=== PATIENT | female | born 1990 | race Caucasian/White ===

== ENCOUNTER 2017-04-05 15:30 | Emergency (ER) | payer OTHER ==
[2017-04-05 16:20] VITALS: BP 132/87
--- NOTE | 2017-04-05 17:54 | UC ---
Eye Complaint HPI - HPI Summary HPI Summary: RIGHT EYE REDNESS AND DISCHARGE SINCE THIS MORNING. NO COUGH, NO SINUS CONGESTION. NO FEVER. - History of Current Complaint Chief Complaint: UCEye Stated Complaint: RT EYE IRRITATION Time Seen by Provider: 04/05/17 16:47 Hx Obtained From: Patient Hx Last Menstrual Period: 2-3 weeks Onset/Duration: Gradual Onset, Lasting Hours, Still Present Timing: Hours Severity Initially: Mild Severity Currently: Moderate Pain Intensity: 0 Pain Scale Used: 0-10 Numeric Location of Injury: Conjunctiva Alleviating Factor(s): Nothing Associated Signs And Symptoms: Positive: Drainage (Purulent). Negative: Photophobia, Vision Impairment Right, Vision Impairment Left, Fever, Swelling - Risk Factors Penetrating Injury Risk Factor: Negative Acute Glaucoma Risk Factors: Negative Optic Artery Occlusion Risk Factors: Negative - Allergies/Home Medications Allergies/Adverse Reactions: Allergies Allergy/AdvReac Type Severity Reaction Status Date / Time seasonal Allergy Eyes Uncoded 04/05/17 16:20 Itchy/Swollen/Red/Watery PMH/Surg Hx/FS Hx/Imm Hx Previously Healthy: Yes - Surgical History Surgical History: Yes Surgery Procedure, Year, and Place: T&A, inguinal hernia surgery and benign tumor discovered 2005 - Family History Known Family History: Positive: Respiratory Disease - many members with asthma, Other - glaucoma - Social History Occupation: Employed Full-time Lives: With Family Alcohol Use: Rare Substance Use Type: None Smoking Status (MU): Never Smoked Tobacco - Immunization History Most Recent Influenza Vaccination: none Review of Systems Constitutional: Negative Skin: Negative Eyes: Drainage, Eye Redness ENT: Negative Respiratory: Negative Cardiovascular: Negative Gastrointestinal: Negative Genitourinary: Negative Motor: Negative Neurovascular: Negative Musculoskeletal: Negative Neurological: Negative Psychological: Negative All Other Systems Reviewed And Are Negative: Yes Physical Exam Triage Information Reviewed: Yes Appearance: Well-Appearing, No Pain Distress, Well-Nourished Vital Signs: Initial Vital Signs Temp 98.4 F 04/05/17 16:07 Pulse 84 04/05/17 16:07 Resp 22 04/05/17 16:07 BP 132/87 04/05/17 16:07 Eyes: Positive: Conjunctiva Inflamed - RIGHT, Discharge ENT Exam: Normal ENT: Positive: Normal ENT inspection, Hearing grossly normal, TMs normal Dental Exam: Normal Neck exam: Normal Neck: Positive: Supple, Nontender, No Lymphadenopathy Respiratory Exam: Normal Respiratory: Positive: Chest non-tender, Lungs clear, Normal breath sounds, No respiratory distress, No accessory muscle use Cardiovascular Exam: Normal Cardiovascular: Positive: RRR, No Murmur, Pulses Normal Abdominal Exam: Normal Musculoskeletal Exam: Normal Musculoskeletal: Positive: Strength Intact, ROM Intact Neurological Exam: Normal Psychological Exam: Normal Skin Exam: Normal Eye Complaint Course/Dx - Differential Dx/Diagnosis Differential Diagnosis/HQI/PQRI: Conjunctivitis, Corneal Abrasion, Uveitis Provider Diagnoses: RIGHT CONJUNCTIVITIS Discharge - Discharge Plan Condition: Stable Disposition: HOME Prescriptions: Erythromycin OPHTH.OINT* [Ilotycin OPHTH.OINT*] 1 applic RIGHT EYE BID #1 ophth.oint Patient Education Materials: Conjunctivitis (ED) Forms: *Work Release Referrals: [facility] [Outside] No Primary Care Phys,NOPCP [Primary Care Provider] -
== END 2017-04-05 17:23 | disposition home or self-care (01) ==
LOC: UCCORT 15:30
DX: H10.9 Unspecified conjunctivitis (principal)
CPT/HCPCS: 99212; G0463

== ENCOUNTER 2017-09-24 10:49 | Emergency (ER) | payer OTHER ==
[2017-09-24 12:27] VITALS: BP 138/82
--- NOTE | 2017-09-24 12:58 | UC ---
Ear Complaint HPI - HPI Summary HPI Summary: Pt c/o right ear pain and muffled hearing X 2 days. - History of Current Complaint Chief Complaint: UCEar Stated Complaint: EAR INFECTION Time Seen by Provider: 09/24/17 12:50 Hx Obtained From: Patient Hx Last Menstrual Period: 09/11/17 ?: No Onset/Duration: Sudden Onset, Lasting Days Severity Initially: Mild Severity Currently: Mild - Allergies/Home Medications Allergies/Adverse Reactions: Allergies Allergy/AdvReac Type Severity Reaction Status Date / Time seasonal Allergy Eyes Uncoded 09/24/17 12:27 Itchy/Swollen/Red/Watery PMH/Surg Hx/FS Hx/Imm Hx Previously Healthy: Yes - Surgical History Surgical History: Yes Surgery Procedure, Year, and Place: T&A, inguinal hernia surgery and benign tumor discovered 2005 - Family History Known Family History: Positive: Respiratory Disease - many members with asthma, Other - glaucoma - Social History Occupation: Employed Full-time Lives: With Family Alcohol Use: Rare Substance Use Type: None Smoking Status (MU): Never Smoked Tobacco Have You Smoked in the Last Year: No - Immunization History Most Recent Influenza Vaccination: none Review of Systems Constitutional: Negative Skin: Negative Eyes: Negative ENT: Ear Ache Respiratory: Negative Cardiovascular: Negative Gastrointestinal: Negative Genitourinary: Negative Motor: Negative Neurovascular: Negative Musculoskeletal: Negative Neurological: Negative Psychological: Negative Is Patient Immunocompromised?: No All Other Systems Reviewed And Are Negative: Yes Physical Exam Triage Information Reviewed: Yes Appearance: Well-Appearing Vital Signs: Initial Vital Signs Temp 98.3 F 09/24/17 12:21 Pulse 83 09/24/17 12:21 Resp 14 09/24/17 12:21 BP 138/82 09/24/17 12:21 Pulse Ox 100 09/24/17 12:21 Vital Signs Reviewed: Yes Eye Exam: Normal ENT Exam: Other ENT: Positive: TM bulging - right TM Dental Exam: Normal Neck exam: Normal Respiratory Exam: Normal Cardiovascular Exam: Normal Musculoskeletal Exam: Normal Neurological Exam: Normal Psychological Exam: Normal Skin Exam: Normal Ear Complaint Course/Dx - Differential Dx/Diagnosis Differential Diagnosis/HQI/PQRI: Otitis Media, URI Provider Diagnoses: right serous otitis. right ear ache Discharge - Discharge Plan Condition: Stable Disposition: HOME Prescriptions: Ciproflox/Dexameth OTIC.SUSP* [Ciprodex OTIC.SUSP*] 2 drop RIGHT EAR Q8H #1 btl Patient Education Materials: Earache (ED), Serous Otitis Media (ED) Referrals: No Primary Care Phys,NOPCP [Primary Care Provider] - If Needed
== END 2017-09-24 13:05 | disposition home or self-care (01) ==
LOC: UCCORT 10:49
DX: H65.91 Unspecified nonsuppurative otitis media, right ear (principal); H92.01 Otalgia, right ear
CPT/HCPCS: 99212; G0463

== ENCOUNTER 2017-10-30 15:10 | Emergency (ER) | payer OTHER ==
[2017-10-30 16:36] VITALS: BP 138/87
--- NOTE | 2017-10-30 17:23 | UC ---
Throat Pain/Nasal Jorge L HPI - HPI Summary HPI Summary: 27 female presents to with complaints of sinus congestion, pain, nasal congestion, headache and feeling "lousy" that began Saturday of last week and worsened today. Patient states she has been using saline rinses without much relief. Has sinus infections often. Denies fever/chills. Admits to coughing and post nasal drip. States headache is a lot of pressure. No other complaints. No PMHx. Discharge is green/yellow. - History of Current Complaint Chief Complaint: UCGeneralIllness Stated Complaint: SINUS/COUGH Time Seen by Provider: 10/30/17 16:26 Hx Obtained From: Patient Hx Last Menstrual Period: has IUD over 1 year Onset/Duration: Sudden Onset, Lasting Days, Still Present, Worse Since Severity: Moderate - 0 Pain Intensity: 2 Pain Scale Used: 0-10 Numeric Cough: Productive Associated Signs & Symptoms: Positive: Sinus Discomfort, Nasal Discharge - Allergies/Home Medications Allergies/Adverse Reactions: Allergies Allergy/AdvReac Type Severity Reaction Status Date / Time seasonal Allergy Eyes Uncoded 10/30/17 16:36 Itchy/Swollen/Red/Watery PMH/Surg Hx/FS Hx/Imm Hx - Additional Past Medical History Additional PMH: Denies DM HTN and asthma - Surgical History Surgical History: Yes Surgery Procedure, Year, and Place: T&A, inguinal hernia surgery and benign tumor discovered 2005 - Family History Known Family History: Positive: Respiratory Disease - many members with asthma, Other - glaucoma - Social History Alcohol Use: Rare Substance Use Type: None Smoking Status (MU): Never Smoked Tobacco Have You Smoked in the Last Year: No - Immunization History Most Recent Influenza Vaccination: [id number] Vaccination Up to Date: Yes Review of Systems Constitutional: Fatigue Eyes: Negative ENT: Sore Throat, Nasal Discharge, Sinus Congestion, Sinus Pain/Tenderness Respiratory: Cough Cardiovascular: Negative Gastrointestinal: Negative Musculoskeletal: Negative Neurological: Headache All Other Systems Reviewed And Are Negative: Yes Physical Exam Triage Information Reviewed: Yes Appearance: No Pain Distress, Well-Nourished, Ill-Appearing - sounds congested Vital Signs: Initial Vital Signs Temp 98.1 F 10/30/17 16:32 Pulse 87 10/30/17 16:32 Resp 16 10/30/17 16:32 BP 138/87 10/30/17 16:32 Pulse Ox 100 10/30/17 16:32 Vital Signs Reviewed: Yes Eyes: Positive: Conjunctiva Clear ENT: Positive: Pharyngeal erythema, Nasal congestion, TMs normal, Sinus tenderness, Uvula midline - airway patent. Negative: TM bulging, TM dull, TM red, Tonsillar swelling, Tonsillar exudate Dental: Positive: Percussion Tenderness @ - maxillary and frontal, Cervical Lymphadenopathy Neck: Positive: Supple, Nontender, No Lymphadenopathy Respiratory: Positive: Chest non-tender, Lungs clear, Normal breath sounds, No respiratory distress, No accessory muscle use. Negative: Wheezing Cardiovascular: Positive: RRR, No Murmur, Pulses Normal, Brisk Capillary Refill Abdomen Description: Positive: Nontender Bowel Sounds: Positive: Present Musculoskeletal: Positive: Strength Intact, ROM Intact Neurological: Positive: Alert Throat Pain/Nasal Course/Dx - Course Course Of Treatment: appears to be suffering from a sinusitis. will treat with augmentin. increase fluid intake and get plenty of rest. ibuprofen/tylenol. saline rinses and flonase. no other concerns at this time. aware of worsening signs and symptoms to watch out for. - Differential Dx/Diagnosis Differential Diagnosis/HQI/PQRI: Sinusitis, URI Provider Diagnoses: sinusitis Discharge - Discharge Plan Condition: Stable Disposition: HOME Prescriptions: Amoxicillin/Clavulanate TAB* [Augmentin TAB 875*] 875 mg PO BID #20 tab Fluticasone NASAL SPRAY 50MCG* [Flonase NASAL SPRAY 50MCG*] 2 spray BOTH NARES DAILY #1 btl Patient Education Materials: Sinusitis (ED) Referrals: [facility] [place], [place] [facility] [Outside] Additional Instructions: Take prescribed medication as directed until entire dose is finished. Increase fluid intake and get plenty of rest. Continue hot compresses, saline rinses, ibuprofen/tylenol and hot showers. Any new or worsening symptoms please seek medical attention promptly. Follow up with PCP.
== END 2017-10-30 17:41 | disposition home or self-care (01) ==
LOC: UCCORT 15:10
DX: J32.9 Chronic sinusitis, unspecified (principal)
CPT/HCPCS: 99212; G0463

== ENCOUNTER 2017-12-21 09:13 | Emergency (ER) | payer OTHER ==
[2017-12-21 11:00] VITALS: BP 126/81
--- NOTE | 2017-12-21 11:14 | UC ---
Throat Pain/Nasal Jorge L HPI - HPI Summary HPI Summary: c/o npc, nasal and chest congestion, earache bilaterally . denies fever or chills - symptoms started 3 days ago tried tylenol cough and cold with some relief. - History of Current Complaint Chief Complaint: UCRespiratory Stated Complaint: SINUSES,PRESSURE Time Seen by Provider: 12/21/17 11:04 Hx Obtained From: Patient Hx Last Menstrual Period: iud Onset/Duration: Lasting Days Severity: Moderate Pain Intensity: 6 Associated Signs & Symptoms: Positive: Sinus Discomfort, Nasal Discharge - Epiglottits Risk Factors Epiglottis Risk Factors: Negative - Allergies/Home Medications Allergies/Adverse Reactions: Allergies Allergy/AdvReac Type Severity Reaction Status Date / Time seasonal Allergy Eyes Uncoded 12/21/17 11:00 Itchy/Swollen/Red/Watery PMH/Surg Hx/FS Hx/Imm Hx Previously Healthy: Yes - Surgical History Surgical History: Yes Surgery Procedure, Year, and Place: T&A, inguinal hernia surgery and benign tumor discovered 2005 - Family History Known Family History: Positive: Respiratory Disease - many members with asthma, Other - glaucoma - Social History Alcohol Use: Weekly Substance Use Type: None Smoking Status (MU): Never Smoked Tobacco Have You Smoked in the Last Year: No - Immunization History Most Recent Influenza Vaccination: [id number] Vaccination Up to Date: Yes Review of Systems Constitutional: Negative Skin: Negative Eyes: Negative ENT: Sore Throat, Ear Ache, Nasal Discharge, Sinus Congestion, Sinus Pain/ Tenderness Respiratory: Cough - npc Cardiovascular: Negative Gastrointestinal: Negative Genitourinary: Negative Motor: Negative Neurovascular: Negative Musculoskeletal: Negative Neurological: Negative Psychological: Negative Is Patient Immunocompromised?: No All Other Systems Reviewed And Are Negative: Yes Physical Exam Triage Information Reviewed: Yes Appearance: Ill-Appearing Vital Signs: Initial Vital Signs Temp 98.3 F 12/21/17 10:56 Pulse 101 12/21/17 10:56 Resp 18 12/21/17 10:56 BP 126/81 12/21/17 10:56 Pulse Ox 100 12/21/17 10:56 Vital Signs Reviewed: Yes Eye Exam: Normal ENT: Positive: Pharyngeal erythema, Nasal congestion, TM bulging - bilaterally, Sinus tenderness Neck exam: Normal Respiratory Exam: Normal Cardiovascular Exam: Normal Abdominal Exam: Normal Musculoskeletal Exam: Normal Neurological Exam: Normal Psychological Exam: Normal Skin Exam: Normal Throat Pain/Nasal Course/Dx - Course Course Of Treatment: take ibuprofen as directed 800mg po q8 hours prn pain. increase fluid intake daily to prevent dehydration. take abx as directed - discussed use and common side effects of med. use nasal spray as directed. f/ u 1 week prn if symptoms not resolving - Differential Dx/Diagnosis Differential Diagnosis/HQI/PQRI: Pharyngitis, Sinusitis Provider Diagnoses: sinusitis Discharge - Discharge Plan Condition: Good Disposition: HOME Prescriptions: Azithromycin TAB* [Zithromax TAB (Z-IGLESIA) 250 mg #6 tabs] 2 tab PO .TODAY, THEN 1 DAILY 5 Days #1 iglesia Fluticasone NASAL SPRAY 50MCG* [Flonase NASAL SPRAY 50MCG*] 2 spray BOTH NARES DAILY 5 Days #1 btl Patient Education Materials: Sinusitis (ED) [facility] - 1 Week
== END 2017-12-21 11:28 | disposition home or self-care (01) ==
LOC: UCCORT 09:13
DX: J32.9 Chronic sinusitis, unspecified (principal)
CPT/HCPCS: 99212; G0463

== ENCOUNTER 2018-05-23 18:31 | Emergency (ER) | payer BC, OTHER ==
[2018-05-23 18:44] VITALS: BP 121/75
[2018-05-23] MEDS ORDERED: Albuterol 2.5 MG/3 ML NEB.SOL* (0.083%) INH ONE (18:52)
--- NOTE | 2018-05-23 19:39 | UC ---
Respiratory Complaint HPI - History of Current Complaint Chief Complaint: UCGeneralIllness Stated Complaint: CHEST DISCOMFORT, DIFF. BREATHING, COUGH, KEN. Time Seen by Provider: 05/23/18 18:51 Hx Last Menstrual Period: 05/22/18, has copper IUD Onset/Duration: Lasting Days Severity Initially: Moderate Severity Currently: Moderate Pain Intensity: 3 Character: Cough: Nonproductive Alleviating Factors: Upright Position Associated Signs And Symptoms: Positive: Dyspnea, Wheezing - Risk Factors Pulmonary Embolism Risk Factors: Negative Cardiac Risk Factors: Negative Pseudomonas Risk Factors: Negative Tuberculosis Risk Factors: Negative - Allergies/Home Medications Allergies/Adverse Reactions: Allergies Allergy/AdvReac Type Severity Reaction Status Date / Time seasonal Allergy Eyes Uncoded 05/23/18 18:44 Itchy/Swollen/Red/Watery PMH/Surg Hx/FS Hx/Imm Hx Previously Healthy: Yes Respiratory History: Asthma - intermittent wheezing in the past - Surgical History Surgical History: Yes Surgery Procedure, Year, and Place: T&A, inguinal hernia surgery and benign tumor discovered 2005 - Family History Known Family History: Positive: Respiratory Disease - many members with asthma, Other - glaucoma - Social History Alcohol Use: Occasionally Substance Use Type: None Smoking Status (MU): Never Smoked Tobacco Have You Smoked in the Last Year: No - Immunization History Most Recent Influenza Vaccination: [id number] Vaccination Up to Date: Yes Review of Systems Constitutional: Negative Skin: Negative Eyes: Negative ENT: Negative Respiratory: Shortness Of Breath, Cough Cardiovascular: Negative Gastrointestinal: Negative Genitourinary: Negative Motor: Negative Neurovascular: Negative Musculoskeletal: Negative Neurological: Negative Psychological: Negative Is Patient Immunocompromised?: Yes All Other Systems Reviewed And Are Negative: Yes Physical Exam Triage Information Reviewed: Yes Appearance: Well-Appearing Vital Signs: Initial Vital Signs Temp 38.1 C 05/23/18 18:37 Pulse 105 05/23/18 18:37 Resp 17 05/23/18 18:37 BP 121/75 05/23/18 18:37 Pulse Ox 100 05/23/18 18:37 Vital Signs Reviewed: Yes Eye Exam: Normal ENT Exam: Normal ENT: Positive: Normal ENT inspection Dental Exam: Normal Neck exam: Normal Neck: Positive: Supple Respiratory Exam: Normal Respiratory: Positive: Chest non-tender, Lungs clear Cardiovascular Exam: Normal Abdominal Exam: Normal Abdomen Description: Positive: Nontender Bowel Sounds: Positive: Present Musculoskeletal Exam: Normal Neurological Exam: Normal Psychological Exam: Normal Skin Exam: Normal UC Diagnostic Evaluation - Laboratory O2 Sat by Pulse Oximetry: 100 Respiratory Course/Dx - Course Course Of Treatment: bronchitis, responsive to albuterol - Differential Dx/Diagnosis Provider Diagnoses: asthma, bronchitis Discharge - Sign-Out/Discharge Documenting (check all that apply): Patient Departure - Discharge Plan Condition: Good Disposition: HOME Patient Education Materials: Bronchospasm (ED) Referrals: No Primary Care Phys,NOPCP [Primary Care Provider] - - Billing Disposition and Condition Condition: GOOD Disposition: Home
--- NOTE | 2018-05-23 19:39 | RAD ---
INDICATION: Fever, cough and dyspnea. COMPARISON: There are no prior studies available for comparison. TECHNIQUE: Dual-energy PA and lateral views of the chest were obtained. FINDINGS: The heart is within normal limits in size. Mediastinal and hilar contours appear within normal limits. The lungs are clear. No pleural effusion is present. IMPRESSION: NO EVIDENCE FOR ACTIVE CARDIOPULMONARY DISEASE.
[2018-05-23] MEDS ORDERED: Azithromycin TAB* 250 MG PO ONE (20:18)
== END 2018-05-23 20:23 | disposition home or self-care (01) ==
LOC: UCCORT 18:31
DX: J45.909 Unspecified asthma, uncomplicated (principal); Z91.048 Other nonmedicinal substance allergy status; Z82.5 Family history of asthma and other chronic lower respiratory diseases
CPT/HCPCS: 71046; 99212; A9270-GY; G0463

== ENCOUNTER 2018-08-19 08:43 | Emergency (ER) | payer BC, OTHER ==
[2018-08-19 09:08] VITALS: BP 140/96
--- NOTE | 2018-08-19 09:42 | UC ---
Throat Pain/Nasal Jorge L HPI - HPI Summary HPI Summary: oral sores x 1 day noted multiple sores in her mouth , mild sore throat no cold sx, no fever, no chills - History of Current Complaint Chief Complaint: UCGeneralIllness Stated Complaint: ORAL/THROAT COMPLAINT Time Seen by Provider: 08/19/18 09:33 Hx Obtained From: Patient Hx Last Menstrual Period: 08/14/18 Onset/Duration: Gradual Onset, Lasting Days - 1, Still Present Severity: Moderate Pain Intensity: 2 Cough: None Associated Signs & Symptoms: Negative: Dysphagia, FB Sensation, Drooling, Wheezing, Hoarseness, Sinus Discomfort, Nasal Discharge, Fever, Vomiting, Rash - Allergies/Home Medications Allergies/Adverse Reactions: Allergies Allergy/AdvReac Type Severity Reaction Status Date / Time seasonal Allergy Eyes Uncoded 08/19/18 09:00 Itchy/Swollen/Red/Watery PMH/Surg Hx/FS Hx/Imm Hx Previously Healthy: Yes - Surgical History Surgical History: Yes Surgery Procedure, Year, and Place: T&A, inguinal hernia surgery and benign tumor discovered 2005 - Family History Known Family History: Positive: Respiratory Disease - many members with asthma, Other - glaucoma - Social History Alcohol Use: Occasionally Substance Use Type: None Smoking Status (MU): Never Smoked Tobacco Have You Smoked in the Last Year: No - Immunization History Most Recent Influenza Vaccination: [id number] Vaccination Up to Date: Yes Review of Systems Constitutional: Negative Skin: Negative Eyes: Negative ENT: Sore Throat Respiratory: Negative Cardiovascular: Negative Is Patient Immunocompromised?: No All Other Systems Reviewed And Are Negative: Yes Physical Exam Triage Information Reviewed: Yes Appearance: Well-Appearing, No Pain Distress, Well-Nourished Vital Signs: Initial Vital Signs Temp 98.3 F 08/19/18 09:01 Pulse 85 08/19/18 09:01 Resp 18 08/19/18 09:01 BP 140/96 08/19/18 09:01 Pulse Ox 100 08/19/18 09:01 Vital Signs Reviewed: Yes Eye Exam: Normal Eyes: Positive: Conjunctiva Clear ENT: Positive: Normal ENT inspection, Hearing grossly normal, Pharynx normal, Other - multiple mouth soars Neck: Positive: Supple, Nontender, No Lymphadenopathy Respiratory Exam: Normal Respiratory: Positive: Chest non-tender, Lungs clear, Normal breath sounds Cardiovascular: Positive: RRR, No Murmur, Pulses Normal Neurological Exam: Normal Throat Pain/Nasal Course/Dx - Course Assessment/Plan: monitor your BP daily. follow up with your pcp in one week - Differential Dx/Diagnosis Provider Diagnoses: canker sores. elevated blood pressure Discharge - Sign-Out/Discharge Documenting (check all that apply): Patient Departure All imaging exams completed and their final reports reviewed: No Studies - Discharge Plan Condition: Stable Disposition: HOME Patient Education Materials: Canker Sores (ED) Referrals: No Primary Care Phys,NOPCP [Primary Care Provider] - If Needed - Billing Disposition and Condition Condition: STABLE Disposition: Home
== END 2018-08-19 09:43 | disposition home or self-care (01) ==
LOC: UCCORT 08:43
DX: K12.0 Recurrent oral aphthae (principal); R03.0 Elevated blood-pressure reading, without diagnosis of hypertension
CPT/HCPCS: 99211; G0463

== ENCOUNTER 2018-12-24 16:36 | Emergency (ER) | payer BC ==
[2018-12-24 17:55] VITALS: BP 144/84
--- NOTE | 2018-12-24 18:26 | UC ---
Throat Pain/Nasal Jorge L HPI - HPI Summary HPI Summary: 28-year-old woman comes in with a chief complaint of runny nose sinus pressure green rhinorrhea. Patient reports the symptoms have been a lot worse in the last day. Has had some runny nose for some time. Also complaint of some ear pressure bilaterally. Some myalgias in her upper back but no generalized myalgias. No recent fevers. Her parents she's got diagnosed with influenza. [id number] medicine helps with the symptoms. - History of Current Complaint Chief Complaint: UCGeneralIllness Stated Complaint: SINUS Time Seen by Provider: 12/24/18 17:45 Hx Last Menstrual Period: 12/24/18 Pain Intensity: 4 - Allergies/Home Medications Allergies/Adverse Reactions: Allergies Allergy/AdvReac Type Severity Reaction Status Date / Time seasonal Allergy Eyes Uncoded 12/24/18 17:53 Itchy/Swollen/Red/Watery PMH/Surg Hx/FS Hx/Imm Hx Previously Healthy: Yes - Surgical History Surgical History: Yes Surgery Procedure, Year, and Place: T&A, inguinal hernia surgery and benign tumor discovered 2005 - Family History Known Family History: Positive: Respiratory Disease - many members with asthma, Other - glaucoma - Social History Alcohol Use: Occasionally Substance Use Type: None Smoking Status (MU): Never Smoked Tobacco Have You Smoked in the Last Year: No - Immunization History Most Recent Influenza Vaccination: [id number] Vaccination Up to Date: Yes Review of Systems All Other Systems Reviewed And Are Negative: Yes Constitutional: Positive: Negative Skin: Positive: Negative Eyes: Positive: Negative ENT: Positive: Sore Throat, Ear Ache, Nasal Discharge, Sinus Congestion, Sinus Pain/Tenderness Respiratory: Positive: Negative Cardiovascular: Positive: Negative Gastrointestinal: Positive: Negative Motor: Positive: Negative Neurovascular: Positive: Negative Musculoskeletal: Positive: Myalgia Neurological: Positive: Negative Psychological: Positive: Negative Is Patient Immunocompromised?: No Physical Exam Triage Information Reviewed: Yes Appearance: No Pain Distress, Well-Nourished, Ill-Appearing - MILD Vital Signs: Initial Vital Signs Temp 99 F 12/24/18 17:52 Pulse 102 12/24/18 17:52 Resp 16 12/24/18 17:52 BP 144/84 12/24/18 17:52 Pulse Ox 100 12/24/18 17:52 Vital Signs Reviewed: Yes Eye Exam: Normal Eyes: Positive: Conjunctiva Clear ENT: Positive: Pharyngeal erythema, Nasal congestion, Nasal drainage, TMs normal Neck exam: Normal Neck: Positive: Supple Respiratory: Positive: Lungs clear, Normal breath sounds, No respiratory distress Cardiovascular: Positive: RRR Musculoskeletal Exam: Normal Musculoskeletal: Positive: Strength Intact, ROM Intact Neurological Exam: Normal Neurological: Positive: Alert, Muscle Tone Normal Psychological Exam: Normal Psychological: Positive: Normal Response To Family, Age Appropriate Behavior Skin Exam: Normal Throat Pain/Nasal Course/Dx - Course Course Of Treatment: DISCUSSED VIRAL VERSES BACTERIAL INFECTION AND THE ROLE OF ANTIBIOTICS. THE PATIENT WISHES TO BE ON ANTIBIOTIC AT THIS TIME. - Differential Dx/Diagnosis Provider Diagnosis: Sinusitis Discharge - Sign-Out/Discharge Documenting (check all that apply): Patient Departure All imaging exams completed and their final reports reviewed: No Studies - Discharge Plan Condition: Stable Disposition: HOME Prescriptions: Amoxicillin/Clavulanate TAB* [Augmentin TAB 875*] 875 mg PO BID #20 tab Patient Education Materials: Sinusitis (ED) Referrals: Moisés Angela MD [Primary Care Provider] - Additional Instructions: FOLLOW UP WITH YOUR DOCTOR IF NOT COMPLETELY IMPROVED. GET RECHECKED FOR ANY WORSENING OF YOUR CONDITION OR QUESTIONS OR CONCERNS. - Billing Disposition and Condition Condition: STABLE Disposition: Home
[2018-12-24 18:42] LABS: Influenza A Molecular NEGATIVE (Negative); Influenza B Molecular NEGATIVE (Negative)
== END 2018-12-24 18:51 | disposition home or self-care (01) ==
LOC: UCCORT 16:36
DX: J32.9 Chronic sinusitis, unspecified (principal); Z91.09 Other allergy status, other than to drugs and biological substances
CPT/HCPCS: 99212; G0463

== ENCOUNTER 2019-03-24 18:19 | Emergency (ER) | payer BC ==
[2019-03-24 19:40] VITALS: BP 139/85
--- NOTE | 2019-03-24 19:55 | UC ---
Eye Complaint HPI - HPI Summary HPI Summary: Pt is accompanied by 4 yo daughter with similar c/o. Pt states that she has had URI like symptoms over the past few days that have begun to improve but now has bilateral eye redness and white colored discharge from bilateral eyes X 2 days. Pt states that her eyes, "sting, are tender" and were "glued shut this morning" - History of Current Complaint Chief Complaint: UCRespiratory Stated Complaint: COUGH, EYE CONCERN Time Seen by Provider: 03/24/19 19:40 Hx Obtained From: Patient Hx Last Menstrual Period: 2 weeks ago ?: No Onset/Duration: Gradual Onset, Lasting Days, Still Present Timing: Constant Severity Initially: Mild Severity Currently: Mild Pain Intensity: 0 Character: Sharp, Dull Alleviating Factor(s): Nothing Associated Signs And Symptoms: Positive: Drainage (Purulent) - Risk Factors Penetrating Injury Risk Factor: Negative Globe Rupture Risk Factors: Negative Acute Glaucoma Risk Factors: Negative Optic Artery Occlusion Risk Factors: Negative - Allergies/Home Medications Allergies/Adverse Reactions: Allergies Allergy/AdvReac Type Severity Reaction Status Date / Time seasonal Allergy Eyes Uncoded 03/24/19 19:35 Itchy/Swollen/Red/Watery Home Medications: Home Medications D-Methorphan/PE/Acetaminophen [Daytime Cold Multi-Symp Gelcap] 2 each PO ONCE PRN 03/24/19 [History Confirmed 03/24/19] PMH/Surg Hx/FS Hx/Imm Hx Previously Healthy: Yes - Surgical History Surgical History: Yes Surgery Procedure, Year, and Place: T&A, inguinal hernia surgery and benign tumor discovered 2005 - Family History Known Family History: Positive: Respiratory Disease - many members with asthma, Other - glaucoma - Social History Occupation: Employed Full-time Lives: With Family Alcohol Use: Occasionally Substance Use Type: None Smoking Status (MU): Never Smoked Tobacco Have You Smoked in the Last Year: No - Immunization History Most Recent Influenza Vaccination: [id number] Vaccination Up to Date: Yes Review of Systems All Other Systems Reviewed And Are Negative: Yes Constitutional: Positive: Negative Skin: Positive: Negative Eyes: Positive: Drainage, Eye Redness, Other - bialteral eye tenderness ENT: Positive: Negative Respiratory: Positive: Negative Cardiovascular: Positive: Negative Gastrointestinal: Positive: Negative Genitourinary: Positive: Negative Motor: Positive: Negative Neurovascular: Positive: Negative Musculoskeletal: Positive: Negative Neurological: Positive: Negative Psychological: Positive: Negative Is Patient Immunocompromised?: No Physical Exam Triage Information Reviewed: Yes Appearance: Well-Appearing Vital Signs: Initial Vital Signs Temp 99.2 F 03/24/19 19:36 Pulse 83 03/24/19 19:36 Resp 16 03/24/19 19:36 BP 139/85 03/24/19 19:36 Pulse Ox 99 03/24/19 19:36 Vital Signs Reviewed: Yes Eyes: Positive: Conjunctiva Inflamed, Discharge - white/yellow ENT Exam: Normal Neck exam: Normal Respiratory Exam: Normal Respiratory: Positive: No respiratory distress Musculoskeletal Exam: Normal Neurological Exam: Normal Psychological Exam: Normal Skin Exam: Normal Eye Complaint Course/Dx - Differential Dx/Diagnosis Differential Diagnosis/HQI/PQRI: Conjunctivitis Provider Diagnosis: Conjunctivitis Discharge - Sign-Out/Discharge Documenting (check all that apply): Patient Departure All imaging exams completed and their final reports reviewed: No Studies - Discharge Plan Condition: Stable Disposition: HOME Prescriptions: Polymyx/Trimethoprim OPTH* [Polytrim OPHTH*] 2 drop BOTH EYES Q8H 7 Days #1 btl Patient Education Materials: Conjunctivitis (ED) Referrals: Moisés Angela MD [Primary Care Provider] - If Needed - Billing Disposition and Condition Condition: STABLE Disposition: Home
== END 2019-03-24 20:15 | disposition home or self-care (01) ==
LOC: UCCORT 18:19
DX: H10.33 Unspecified acute conjunctivitis, bilateral (principal); J30.2 Other seasonal allergic rhinitis
CPT/HCPCS: 99212; G0463

== ENCOUNTER 2019-12-19 10:18 | Emergency (ER) | payer BC ==
[2019-12-19 11:19] VITALS: BP 146/99
--- NOTE | 2019-12-19 11:34 | UC ---
FLU HPI - HPI Summary HPI Summary: Pt presents with c/o gradual onset of cough, wheezing, fever, chills, body aches X 3 days.. Pt's daughter positive for Flu A - History of Current Complaint Chief Complaint: UCGeneralIllness Stated Complaint: COUGH CHILLS BODYACHES Time Seen by Provider: 12/19/19 11:20 Hx Obtained From: Patient Hx Last Menstrual Period: 2 weeks ago ?: No Onset/Duration: Gradual Onset, Lasting Days, Still Present Severity Currently: Mild Severity Initially: Moderate Pain Intensity: 6 Associated Signs & Symptoms: Positive: Fever, Myalgia, Cough, Nasal Congestion, Headache Related Hx: Possible Flu/Infectious Exposure - Risk Factors Influenza Risk Factors: Negative - Allergy/Home Medications Allergies/Adverse Reactions: Allergies Allergy/AdvReac Type Severity Reaction Status Date / Time seasonal Allergy Eyes Uncoded 12/19/19 11:15 Itchy/Swollen/Red/Watery Home Medications: Home Medications Acetaminophen [Tylenol Extra Strength] 1,000 mg PO ONCE 12/19/19 [History Confirmed 12/19/19] Dm/Acetaminophen/Doxylamine [Nighttime Cold-Flu Rlf Sftgl] 1 dose PO ONCE PRN [History Confirmed 12/19/19] PMH/Surg Hx/FS Hx/Imm Hx Previously Healthy: Yes - Surgical History Surgical History: Yes Surgery Procedure, Year, and Place: T&A, inguinal hernia surgery and benign tumor discovered 2005 - Family History Known Family History: Positive: Respiratory Disease - many members with asthma, Other - glaucoma - Social History Occupation: Employed Full-time Lives: With Family Alcohol Use: Occasionally Substance Use Type: None Smoking Status (MU): Never Smoked Tobacco Have You Smoked in the Last Year: No - Immunization History Most Recent Influenza Vaccination: [id number] Vaccination Up to Date: Yes Review of Systems All Other Systems Reviewed And Are Negative: Yes Constitutional: Positive: Fever, Chills, Fatigue Skin: Positive: Negative Eyes: Positive: Negative ENT: Positive: Sinus Congestion Respiratory: Positive: Cough Cardiovascular: Positive: Negative Gastrointestinal: Positive: Negative Genitourinary: Positive: Negative Motor: Positive: Negative Neurovascular: Positive: Negative Musculoskeletal: Positive: Myalgia Neurological: Positive: Headache Psychological: Positive: Negative Is Patient Immunocompromised?: No Physical Exam Triage Information Reviewed: Yes Appearance: Ill-Appearing Vital Signs: Initial Vital Signs Temp 100.3 F 12/19/19 11:17 Pulse 101 12/19/19 11:17 Resp 20 12/19/19 11:17 BP 146/99 12/19/19 11:17 Pulse Ox 99 12/19/19 11:17 Vital Signs Reviewed: Yes Eye Exam: Normal ENT: Positive: Nasal congestion Dental Exam: Normal Neck exam: Normal Respiratory Exam: Normal Respiratory: Positive: Normal breath sounds, No respiratory distress, Other: - upper respiratory congestion Cardiovascular Exam: Normal Musculoskeletal Exam: Normal Neurological Exam: Normal Psychological Exam: Normal Skin Exam: Normal Flu Course/Dx - Differential Dx/Diagnosis Differential Diagnosis/HQI/PQRI: Influenza, Upper Respiratory Infection Provider Diagnosis: Influenza Discharge ED - Sign-Out/Discharge Documenting (check all that apply): Patient Departure All imaging exams completed and their final reports reviewed: No Studies - Discharge Plan Condition: Stable Disposition: HOME Prescriptions: Oseltamivir CAP* [Tamiflu CAP*] 75 mg PO Q12H #10 cap predniSONE 10 mg TAB [Deltasone 10 MG TAB*] 30 mg PO DAILY #12 tab Patient Education Materials: Influenza (ED) Referrals: [facility] [place] [facility] [Outside] - If Needed No Primary Care Phys,NOPCP [Primary Care Provider] - - Billing Disposition and Condition Condition: STABLE Disposition: Home
== END 2019-12-19 11:53 | disposition home or self-care (01) ==
LOC: UCCORT 10:18
DX: J11.1 Influenza due to unidentified influenza virus with other respiratory manifestations (principal); Z91.09 Other allergy status, other than to drugs and biological substances
CPT/HCPCS: 99212; G0463